=== PATIENT | male | born 1950 | race Hispanic/Latino ===

== ENCOUNTER → 2017-12-23 | Outpatient (CLI) | payer OTHER | END | disposition home or self-care (01) | LOC: SHCH 13:29 | PROVIDERS: ATTEND Internal Medicine Cardiovascular Disease | DX: I10 Essential (primary) hypertension (principal); R09.89 Other specified symptoms and signs involving the circulatory and respiratory systems | CPT/HCPCS: 93306 ==

== ENCOUNTER → 2017-12-23 | Outpatient (CLI) | payer OTHER | END | disposition home or self-care (01) | LOC: SHCH 10:00 | PROVIDERS: ATTEND Internal Medicine Cardiovascular Disease | DX: I10 Essential (primary) hypertension (principal); R09.89 Other specified symptoms and signs involving the circulatory and respiratory systems | CPT/HCPCS: 93880 ==

== ENCOUNTER → 2018-06-15 | Outpatient (CLI) | payer OTHER ==
[~2018-06-15] VITALS: Ht 175.3 cm; Wt 117.9 kg
[~2018-06-15] MED LIST: REGADENOSON 0.4 MG/5 ML PF SYG IVP SCH
== END | disposition home or self-care (01) ==
LOC: SHCH 09:05
PROVIDERS: ATTEND Internal Medicine Cardiovascular Disease
DX: I25.119 Atherosclerotic heart disease of native coronary artery with unspecified angina pectoris (principal); I10 Essential (primary) hypertension
CPT/HCPCS: 78452; 93017; 96374; A9500 ×2; J2785

== ENCOUNTER → 2020-10-01 | Outpatient (CLI) | payer OTHER | END | disposition home or self-care (01) | LOC: SHCH 09:15 | PROVIDERS: ATTEND Internal Medicine Cardiovascular Disease | DX: I50.22 Chronic systolic (congestive) heart failure (principal) | CPT/HCPCS: 93306; 93356 ==

== ENCOUNTER 2025-05-19 06:15 | Inpatient (IN) | payer OTHER ==
[2025-05-18 14:46] LABS: IMMATURE GRANULOCYTE ABSOLUTE 0.04 K/uL (0-1); NUCLEATED RED BLOOD CELLS 0.0 % (0.0-0.19); PLATELET COUNT (AUTO) 449 K/uL (130-400); RED BLOOD CELL COUNT(AUTO) 3.69 MIL/uL (4.50-6.20); RED CELL DISTRIBUTION WIDTH 13.6 % (11.0-15.5); WHITE BLOOD COUNT (AUTO) 9.5 K/uL (4.8-10.8)
[2025-05-18 14:49] VITALS: BP 152/85; PULSE 85; RESP 16; TEMP 97.3
[2025-05-18 14:49] LABS: ADD UA MICROSCOPIC NO; APPEARANCE,URINE CLEAR (CLEAR); GLUCOSE, URINE (UA) NEGATIVE (NEGATIVE); LEUKOCYTE ESTERASE ,URINE NEGATIVE Leu/uL (NEGATIVE); NITRATE,URINE NEGATIVE (NEGATIVE); OCCULT BLOOD,URINE NEGATIVE (NEGATIVE)
[2025-05-18 14:52] LABS: CREATININE 0.7 mg/dL (0.5-1.3); GLOMERULAR FILTR. RATE CALC 96.0 mL/min (>90); GLUCOSE,RANDOM 115.0 mg/dL (70-105); SODIUM SERUM 142.0 mmol/L (136-145); UREA NITROGEN, BLOOD 19.0 mg/dL (7-18)
[2025-05-18 14:55] LABS: INR 1.07 (0.85-1.15)
--- NOTE | 2025-05-18 15:30 | NUR ---
RE: IS INITIAL IS INITIAL TEACHING DONE BY RT BEKAH DURING PREOP.
[~2025-05-19] VITALS: Ht 175.3 cm; Wt 98.9 kg
[2025-05-19] VITALS (31 sets, daily range): BP systolic 105–145; BP diastolic 49–80; PULSE 69–88; RESP 17–20; TEMP 97.5–97.8; O2SAT 92–96
[~2025-05-19 06:15] MED LIST changes: +AMLO-257 PO; +APRE30TA5 PO; +ASPI-1443 PO; +ATOR40TA69 PO; +CLOP-31 PO; +DULO60CA64 PO; +HYDR12.54 PO; +LOSA25TA41 PO; +METF-446 PO; +METO-391 PO; +OMEP40CA21 PO; +POTA-202 PO; -REGADENOSON 0.4 MG/5 ML PF SYG IVP SCH; +TORS20TA4 PO
[2025-05-19] MEDS: 0.9%NACL 1000ML 1,000 ML IV ONE (06:56)
[2025-05-19] MEDS ORDERED: VANCOMYCIN 500MG+NS 100ML 100 ML IV ONE (07:44)
[2025-05-19] MEDS ORDERED: MIDAZOLAM HCL 1 MG/ML 2ML VIAL ONE (09:19)
[2025-05-19] MEDS ORDERED: SUCCINYLCHOLINE CHLORIDE 20 MG/ML 10 ML VIAL ONE (09:19)
[2025-05-19] MEDS ORDERED: TRANEXAMIC ACID 1000MG/10ML ONE (10:28)
--- NOTE | 2025-05-19 12:21 | OP ---
Operative Note: DATE OF PROCEDURE: 05/19/25 SURGEON: ALISTAIR PEOPLES MD PRIMARY CARE SALES REPRESENTATIVE: [Galina Jalloh CFA] ANESTHESIA: [General anesthesia plus regional block] ANESTHESIOLOGIST/INCIDENT RESPONSE ANALYST: [] PREOPERATIVE DIAGNOSIS: [Ten Nava CRNA] POSTOPERATIVE DIAGNOSIS: [Right knee osteoarthritis] IMPLANTS: [Biomet vanguard. Femur 70 right PS. Tibia 83 fixed cruciate. Tibial liner size 12 x 79/83 PS. Patella size 37 x 10 asymmetric.] PROCEDURE: [Right total knee arthroplasty] ESTIMATED BLOOD LOSS: [150 mL] INDICATIONS: [The patient is a 74-year-old male with a history of severe arthrosis of the right knee that has a longer responded to conservative treatment the patient being very incapacitated for activities of the daily living and trocar in the use of a wheelchair. The patient is brought to operating room for right total knee arthroplasty, procedure that he understood, risks, benefits and possible complications and agreed to sign the consent form.] DESCRIPTION OF PROCEDURE: [After adequate general anesthesia was achieved and regional block obtained the right lower extremity was prepped and draped in the usual manner previous placement of the tourniquet in the proximal thigh. The extremity was then elevated and exsanguinated with an Esmarch bandage and the tourniquet inflated to 300 mmHg the Esmarch band been then removed. With the knee in flexion a longitudinal incision was then made in the anterior aspect through the skin followed by dissection of the subcutaneous tissue. A bone infusion needle was then inserted just medial to the tibial tuberosity and through this needle we injected into the bone a solution of normal saline 50 mL mixed with 500 mg of vancomycin. The needle was removed. A paramedian approach was then made with the Bovie cautery cutting through the quadriceps tendon, medial patellar retinaculum and patellar tendon retinaculum. The retropatellar tendon fat was then excised and the soft tissue elements of the tibia were elevated subperiosteally and retractors were applied medially and laterally . The anterior and posterior cruciate ligaments were resected. With the use of a drill a starting hole was made in the distal femur entering the intramedullary canal and then after removal of the drill an intramedullary guide was inserted with a 5 degree valgus block that touched the distal femur and to this the distal femoral cutting guide was then applied anteriorly and was secured to the distal femur with the use of pins. The intramedullary guide was then removed and with the use of the oscillating saw we proceeded to resect the distal femur removing the fragments and the guide. The femoral sizer was then applied distally and drill holes were made removing the sizer and the 4-in-1 cutting block was then inserted and the anterior, posterior and chamfer cuts were made removing the fragments and the block. The PS cutting guide was then inserted and the intercondylar cut was made removing the fragment and the guide. The posterior cruciate ligament retractor was then inserted posterior to the tibia and this was brought forward proceeding then to apply the external tibial alignment guide and secured the proximal cutting guide to the tibia with the use of pins. With the use of the oscillating saw the proximal cut to the tibia tibia was made. The bone fragment was removed and the trial tibia plate was chosen. At this point the menisci were removed sharply and with the use of the curved osteotome the posterior osteophytes of the femur were removed. The trial components were then inserted at the femur and tibia with a trial tibial liner bringing the knee into extension noticing that the patient had a very stable knee in flexion, extension and with valgus and varus stress. The knee was maintained in extension and the patella was then addressed proceeding to measure its thickness and then with the use of the oscillating saw we removed eight mm from the articular surface and restored the height with application of a trial component after 3 peg holes were made. The patellofemoral ligament was removed and then the patellofemoral tracking was checked noticing to be lateralized and for this reason a lateral retinacular release was made returning the tracking back to normal. At this moment all the components were removed, the tibia after the metaphyseal defect was created and while cement was being mixed on the back table we proceeded to irrigate the joint with antibiotic solution and then cover the entry to the femoral canal with a bone plug. Once the cement was ready we proceeded to apply it first to the tibia surface inserting the final component and then to the femoral surface and inserted the final component removing the excess cement and then applying a trial liner bringing the knee into extension for compression. Then we proceeded to irrigate the patella surface and dried it applying then bone cement and the final patellar component was inserted and was secured with application of a clamp. The joint was irrigated with a warm diluted Betadine solution while the cement dried followed by irrigation with antibiotic solution. The trial liner was removed as well as the patellar clamp and we proceeded then to irrigate the posterior aspect of the joint to remove all the remaining debris and the final tibial liner was inserted and locked against the tibia. The range of motion was checked and noticed to be adequate with full extension and flexion, no laxity in valgus or varus stress and with adequate patellofemoral tracking. The patient had no anterior or posterior drawer. The tourniquet was then deflated and this was followed by hemostasis and the wound was then closed with approximation of the quadriceps tendon, patellar retinaculum and patellar tendon retinaculum with #1 Vicryl close stitches alternating with #1 Ethibond stitches, and closure of the subcutaneous tissue with 2-0 Monocryl inverted stitches and the skin was closed with 3-0 Monocryl subcuticularly. The wound was covered with a suction dressing followed by application of an Keyon bandage for compression and the drapes were t hen removed transferring the patient to the hospital bed and taken to recovery room for follow-up by anesthesia. There were no complications during the procedure.] ALISTAIR PEOPLES MD May 19, 2025 12:21
[2025-05-19] MEDS ORDERED: PoTASSium chloRIDE 20MEQ ER 20 MEQ ERTAB PO PRN (12:30)
[2025-05-19] MEDS ORDERED: FERROUS FUMARATE 324 MG TABLET PO PRN (12:30)
[2025-05-19] MEDS ORDERED: PoTASSium chl 10% ELIXIR 20MEQ 20 MEQ/15 ML UDCUP PO PRN (12:30)
[2025-05-19] MEDS: 0.9%NACL 1000ML 1,000 ML IV SCH (12:30)
[2025-05-19] MEDS ORDERED: CALCIUM CARB 500MG PO PRN (12:30)
[2025-05-19] MEDS ORDERED: GLYCOPYRROLATE 0.2 MG/ML 5 ML VIAL ONE (12:36)
[2025-05-19] MEDS ORDERED: NEOSTIGMINE METHYLSULFATE 1MG/ML IV ONE (12:36)
--- NOTE | 2025-05-19 16:00 | NUR ---
ORTHO COORDINATOR: ATTEMPTED TEACHING, PHYSICAL THERAPY AT BEDSIDE.
[2025-05-19] MEDS: ASPIRIN 81 MG EC TAB PO SCH (20:05)
[2025-05-20] VITALS (7 sets, daily range): BP systolic 103–158; BP diastolic 56–94; PULSE 82–107; RESP 18–20; TEMP 97.5–98.6; O2SAT 95–98
[2025-05-20 04:27] LABS: NUCLEATED RED BLOOD CELLS 0.0 % (0.0-0.19); PLATELET COUNT (AUTO) 382.0 K/uL (130-400); RED BLOOD CELL COUNT(AUTO) 3.06 MIL/uL (4.50-6.20); RED CELL DISTRIBUTION WIDTH 13.5 % (11.0-15.5); WHITE BLOOD COUNT (AUTO) 11.2 K/uL (4.8-10.8)
[2025-05-20 04:53] LABS: CREATININE 0.9 mg/dL (0.5-1.3); GLOMERULAR FILTR. RATE CALC 89.0 mL/min (>90); GLUCOSE,RANDOM 149.0 mg/dL (70-105); SODIUM SERUM 135.0 mmol/L (136-145); UREA NITROGEN, BLOOD 18.0 mg/dL (7-18)
--- NOTE | 2025-05-20 14:07 | PN ---
Postop day 1. Status post right total knee arthroplasty. Vital signs stable, afebrile. The patient feels good this morning. Adequate pain control with Toradol the most. Oxycodone not being very effective at this time. Awake, alert and oriented. In no respiratory distress. Dressing intact. Neurovascular exam normal. Assessment: Status post right total knee arthroplasty. Plan: Continue physical therapy and rehabilitation. Await for [place] approval of discharge plan. Vitals/Labs Vital Signs Date Time Temp Pulse Resp B/P (MAP) Pulse Ox O2 Delivery O2 Flow Rate FiO2 05/20/25 11:46 98.2 107 20 103/62 98 Room Air 21 05/19/25 20:05 0 Laboratory Tests 05/20/25 04:22 Medications Current Medications Cefazolin Sodium 2 gm STK-MED ONCE .ROUTE; Start 05/19/25 at 06:55; Stop 05/19/25 at 06:56; Status DC Sodium Chloride 1,000 ml @ As Directed STK-MED ONCE IV; Start 05/19/25 at 06:56; Stop 05/19/25 at 06:56; Status DC Cefazolin Sodium 1 gm STK-MED ONCE .ROUTE; Start 05/19/25 at 07:44; Stop 05/19/25 at 07:44; Status DC Vancomycin HCl 100 ml @ As Directed STK-MED ONCE IV; Start 05/19/25 at 07:44; Stop 05/19/25 at 07:45; Status DC Dexamethasone Sodium Phosphate 10 mg STK-MED ONCE .ROUTE; Start 05/19/25 at 09:18; Stop 05/19/25 at 09:18; Status DC Ondansetron HCl 4 mg STK-MED ONCE .ROUTE; Start 05/19/25 at 09:18; Stop 05/19/25 at 09:18; Status DC Succinylcholine Chloride 200 mg STK-MED ONCE .ROUTE; Start 05/19/25 at 09:19; Stop 05/19/25 at 09:19; Status DC Fentanyl Citrate 100 mcg STK-MED ONCE .ROUTE; Start 05/19/25 at 09:19; Stop 05/19/25 at 09:19; Status DC Propofol 200 mg STK-MED ONCE IV; Start 05/19/25 at 09:19; Stop 05/19/25 at 09:19; Status DC Midazolam HCl 2 mg STK-MED ONCE .ROUTE; Start 05/19/25 at 09:19; Stop 05/19/25 at 09:20; Status DC Rocuronium [place] 50 mg STK-MED ONCE .ROUTE; Start 05/19/25 at 09:20; Stop 05/19/25 at 09:20; Status DC Tranexamic Acid 1,000 mg STK-MED ONCE .ROUTE; Start 05/19/25 at 10:28; Stop 05/19/25 at 10:28; Status DC Rocuronium [place] 50 mg STK-MED ONCE .ROUTE; Start 05/19/25 at 10:56; Stop 05/19/25 at 10:56; Status DC Cefazolin Sodium 2 gm STK-MED ONCE IVPB Last administered on 05/19/25at 09:50; Start 05/19/25 at 09:50; Stop 05/19/25 at 11:37; Status DC Tranexamic Acid 1,000 mg STK-MED ONCE IV Last administered on 05/19/25at 10:20; Start 05/19/25 at 10:20; Stop 05/19/25 at 11:37; Status DC Cefazolin Sodium 3 gm STK-MED ONCE IRRIG Last administered on 05/19/25at 11:30; Start 05/19/25 at 11:30; Stop 05/19/25 at 11:38; Status DC Vancomycin HCl 500 mg STK-MED ONCE IJ Last administered on 05/19/25at 11:30; Start 05/19/25 at 11:30; Stop 05/19/25 at 11:38; Status DC Sodium Chloride 1,000 ml @ 100 mls/hr Q10H IV Last administered on 05/20/25at 11:22; Start 05/19/25 at 12:30; Stop 05/20/25 at 11:33; Status DC Polyethylene Glycol 17 gm DAILY PO Last administered on 05/20/25at 09:49; Start 05/20/25 at 09:00; Stop 06/19/25 at 08:59 Bisacodyl 10 mg DAILY PRN RC; Start 05/22/25 at 12:30; Stop 06/21/25 at 12:29 Ketorolac Tromethamine 15 mg Q6H PRN IV Last administered on 05/20/25at 13:20; Start 05/19/25 at 12:30; Stop 05/24/25 at 12:29 Tamsulosin HCl 0.4 mg DAILY PO Last administered on 05/20/25at 09:48; Start 05/20/25 at 09:00; Stop 06/19/25 at 08:59 Ferrous Fumarate 324 mg DAILY PRN PO; Start 05/19/25 at 12:30; Stop 06/18/25 at 12:29 Temazepam 15 mg HS PRN PO; Start 05/19/25 at 12:30; Stop 06/18/25 at 12:29 Ondansetron HCl 4 mg Q6H PRN IVP; Start 05/19/25 at 12:30; Stop 06/18/25 at 12:29 Calcium Carbonate 500 mg Q12H PRN PO; Start 05/19/25 at 12:30; Stop 06/18/25 at 12:29 Diphenhydramine HCl 25 mg Q6H PRN IVP; Start 05/19/25 at 12:30; Stop 06/18/25 at 12:29 Insulin Human Regular INSULIN SLIDING SCAL... ACHS SQ; Start 05/19/25 at 16:30; Stop 06/18/25 at 16:29 Cefazolin Sodium 2 gm Q8H IVP Last administered on 05/20/25at 01:04; Start 05/19/25 at 17:30; Stop 05/20/25 at 01:31; Status DC Potassium Chloride 100 ml @ 100 mls/hr AD PRN IV; Start 05/19/25 at 12:30; Stop 06/18/25 at 12:29 Potassium Chloride 20 meq AD PRN PO; Start 05/19/25 at 12:30; Stop 06/18/25 at 12:29 Potassium Chloride 20 meq AD PRN PO; Start 05/19/25 at 12:30; Stop 06/18/25 at 12:29 Oxycodone HCl 5 mg Q4H PRN PO; Start 05/19/25 at 12:30; Stop 05/26/25 at 12:29 Oxycodone HCl 10 mg Q4H PRN PO Last administered on 05/20/25at 09:50; Start 05/19/25 at 12:30; Stop 05/26/25 at 12:29 Tramadol HCl 50 mg Q6H PRN PO Last administered on 05/20/25at 05:56; Start 05/19/25 at 12:30; Stop 05/24/25 at 12:29 Acetaminophen 1,000 mg Q8H PO Last administered on 05/20/25at 13:10; Start 05/19/25 at 12:30; Stop 05/21/25 at 12:29 Clopidogrel Bisulfate 75 mg DAILY PO Last administered on 05/20/25at 09:49; Start 05/20/25 at 09:00; Stop 05/20/25 at 11:10; Status DC Aspirin 81 mg BID PO Last administered on 05/20/25at 09:48; Start 05/19/25 at 21:00; Stop 05/20/25 at 11:11; Status DC Glycopyrrolate 1 mg STK-MED ONCE .ROUTE; Start 05/19/25 at 12:36; Stop 05/19/25 at 12:36; Status DC Neostigmine Methylsulfate 10 mg STK-MED ONCE IV; Start 05/19/25 at 12:36; Stop 05/19/25 at 12:36; Status DC Fentanyl Citrate 100 mcg STK-MED ONCE .ROUTE Last administered on 05/19/25at 13:10; Start 05/19/25 at 13:02; Stop 05/19/25 at 13:02; Status DC Amlodipine Besylate 5 mg HS PO; Start 05/20/25 at 21:00; Stop 06/19/25 at 20:59 Aspirin 81 mg HS PO; Start 05/20/25 at 21:00; Stop 06/19/25 at 20:59 Atorvastatin Calcium 80 mg HS PO; Start 05/20/25 at 21:00; Stop 06/19/25 at 20:59 Clopidogrel Bisulfate 75 mg HS PO; Start 05/20/25 at 21:00; Stop 06/19/25 at 20:59 Losartan Potassium 25 mg HS PO; Start 05/20/25 at 21:00; Stop 06/19/25 at 20:59 Metoprolol Succinate 75 mg DAILY PO Last administered on 05/20/25at 11:19; Start 05/20/25 at 11:14; Stop 06/19/25 at 11:13 Potassium Chloride 20 meq DAILY PO; Start 05/21/25 at 09:00; Stop 06/20/25 at 08:59 Torsemide 20 mg DAILYBKFST PO; Start 05/21/25 at 08:00; Stop 06/20/25 at 07:59 Home Med Apremilast(Otezla) 30MG BID PO; Start 05/20/25 at 21:00; Stop 06/19/25 at 20:59 Miscellaneous Medication 60 mg HS PO; Start 05/20/25 at 21:00; Stop 05/20/25 at 11:16; Status DC Miscellaneous Medication 12.5 mg DAILY PO; Start 05/21/25 at 09:00; Stop 05/20/25 at 11:20; Status DC Miscellaneous Medication 1,000 mg BID PO; Start 05/20/25 at 21:00; Stop 05/20/25 at 11:23; Status DC Miscellaneous Medication 40 mg HS PO; Start 05/20/25 at 21:00; Stop 05/20/25 at 11:23; Status DC Duloxetine HCl 60 mg HS PO; Start 05/20/25 at 21:00; Stop 06/19/25 at 20:59 Hydrochlorothiazide 12.5 mg DAILY PO; Start 05/21/25 at 09:00; Stop 06/20/25 at 08:59 Pantoprazole Sodium 40 mg HS PO; Start 05/20/25 at 21:00; Stop 06/19/25 at 20:59 Metformin HCl 1,000 mg BIDMEALS PO; Start 05/20/25 at 17:00; Stop 06/19/25 at 16:59 ALISTAIR PEOPLES MD May 20, 2025 14:07
[2025-05-20] MEDS ORDERED: DIPHTH,PERTUSS(ACELL),TET VAC 0.5 ML SYG IM ONE (18:30)
--- NOTE | 2025-05-20 19:46 | NUR ---
[facility] CM MET WITH PT THIS EVENING, INITIAL ASSESSMENT DONE. PATIENT IS SEMI-INDEPENDENT PRIOR TO SURGERY, LIVES AT HOME WITH HIS , DAUGHTER LIVES CLOSE BY. PATIENT HAS A WALKER, WHEELCHAIR. SHOWER CHAIR, CANE, CPAP, NEBULIZER MACHINE, OLD GLUCOMETER THAT HIS MD SAID HE DOESN'T NEED TO USE BECAUSE HIS HGAIC IS STABLE, TAKES PO DM MED, BPM. DENIES ANY OTHER EQUIPMENT/SERVICES. PT VERBALIZED HE WOULD LIKE TO GO TO [facility] FOR REHAB, CONSENT [facility]LL[facility]. [facility] ONCE APPROVED. CM TO CONTINUE TO FOLLOW UP. Addendum: 05/20/25 at 1950 by GARY MAY LVN Amended: Links added.
[2025-05-20] MEDS: amLODIPine 5 MG TAB PO SCH (20:44)
[2025-05-20] MEDS: ASPIRIN 81 MG EC TAB PO SCH (20:48)
[2025-05-20] MEDS ORDERED: NON-FORMULARY MEDICATION 1 EACH (Duloxetine HCl 60 MG) PO SCH (21:00)
[2025-05-20] MEDS ORDERED: NON-FORMULARY MEDICATION 1 EACH (Omeprazole 40 MG) PO SCH (21:00)
[2025-05-20] MEDS ORDERED: NON-FORMULARY MEDICATION 1 EACH (Metformin HCl 1,000 MG) PO SCH (21:00)
[2025-05-20] MEDS: APREMILAST 30 MG PO SCH (21:00)
[2025-05-21] VITALS (7 sets, daily range): BP systolic 103–119; BP diastolic 54–67; PULSE 88–95; RESP 16–20; TEMP 96.8–98.6; O2SAT 98–99
[2025-05-21] MEDS: TORSEMIDE 20 MG TAB PO SCH (08:00)
[2025-05-21] MEDS: PoTASSium chloRIDE 20MEQ ER 20 MEQ ERTAB PO SCH (08:19)
[2025-05-21] MEDS ORDERED: NON-FORMULARY MEDICATION 1 EACH (Hydrochlorothiazide 12.5 MG) PO SCH (09:00)
--- NOTE | 2025-05-21 12:20 | PN ---
POD # 2., status post right total knee arthroplasty. Vital signs stable, afebrile. Patient doing well with physical therapy and pain management. Awake, alert and oriented, eating. He is in no respiratory distress and normal ventilatory effort. Dressing in the right lower extremity is clean and dry with no signs of bleeding. Mild edema and lower leg. The neurovascular exam is normal. Assessment: Status post right total knee arthroplasty. Plan: Continue with physical therapy, pain management. Awaiting discharge planning arrangements to be completed. Vitals/Labs Vital Signs Date Time Temp Pulse Resp B/P (MAP) Pulse Ox O2 Delivery O2 Flow Rate FiO2 05/21/25 08:00 97.3 91 16 117/56 99 Room Air 21 05/21/25 08:00 0 Medications Current Medications Cefazolin Sodium 2 gm STK-MED ONCE .ROUTE; Start 05/19/25 at 06:55; Stop 05/19/25 at 06:56; Status DC Sodium Chloride 1,000 ml @ As Directed STK-MED ONCE IV; Start 05/19/25 at 06:56; Stop 05/19/25 at 06:56; Status DC Cefazolin Sodium 1 gm STK-MED ONCE .ROUTE; Start 05/19/25 at 07:44; Stop 05/19/25 at 07:44; Status DC Vancomycin HCl 100 ml @ As Directed STK-MED ONCE IV; Start 05/19/25 at 07:44; Stop 05/19/25 at 07:45; Status DC Dexamethasone Sodium Phosphate 10 mg STK-MED ONCE .ROUTE; Start 05/19/25 at 09:18; Stop 05/19/25 at 09:18; Status DC Ondansetron HCl 4 mg STK-MED ONCE .ROUTE; Start 05/19/25 at 09:18; Stop 05/19/25 at 09:18; Status DC Succinylcholine Chloride 200 mg STK-MED ONCE .ROUTE; Start 05/19/25 at 09:19; Stop 05/19/25 at 09:19; Status DC Fentanyl Citrate 100 mcg STK-MED ONCE .ROUTE; Start 05/19/25 at 09:19; Stop 05/19/25 at 09:19; Status DC Propofol 200 mg STK-MED ONCE IV; Start 05/19/25 at 09:19; Stop 05/19/25 at 09:19; Status DC Midazolam HCl 2 mg STK-MED ONCE .ROUTE; Start 05/19/25 at 09:19; Stop 05/19/25 at 09:20; Status DC Rocuronium [place] 50 mg STK-MED ONCE .ROUTE; Start 05/19/25 at 09:20; Stop 05/19/25 at 09:20; Status DC Tranexamic Acid 1,000 mg STK-MED ONCE .ROUTE; Start 05/19/25 at 10:28; Stop 05/19/25 at 10:28; Status DC Rocuronium [place] 50 mg STK-MED ONCE .ROUTE; Start 05/19/25 at 10:56; Stop 05/19/25 at 10:56; Status DC Cefazolin Sodium 2 gm STK-MED ONCE IVPB Last administered on 05/19/25at 09:50; Start 05/19/25 at 09:50; Stop 05/19/25 at 11:37; Status DC Tranexamic Acid 1,000 mg STK-MED ONCE IV Last administered on 05/19/25at 10:20; Start 05/19/25 at 10:20; Stop 05/19/25 at 11:37; Status DC Cefazolin Sodium 3 gm STK-MED ONCE IRRIG Last administered on 05/19/25at 11:30; Start 05/19/25 at 11:30; Stop 05/19/25 at 11:38; Status DC Vancomycin HCl 500 mg STK-MED ONCE IJ Last administered on 05/19/25at 11:30; Start 05/19/25 at 11:30; Stop 05/19/25 at 11:38; Status DC Sodium Chloride 1,000 ml @ 100 mls/hr Q10H IV Last administered on 05/20/25at 11:22; Start 05/19/25 at 12:30; Stop 05/20/25 at 11:33; Status DC Polyethylene Glycol 17 gm DAILY PO Last administered on 05/21/25at 08:19; Start 05/20/25 at 09:00; Stop 06/19/25 at 08:59 Bisacodyl 10 mg DAILY PRN RC; Start 05/22/25 at 12:30; Stop 06/21/25 at 12:29 Ketorolac Tromethamine 15 mg Q6H PRN IV Last administered on 05/21/25at 09:40; Start 05/19/25 at 12:30; Stop 05/24/25 at 12:29 Tamsulosin HCl 0.4 mg DAILY PO Last administered on 05/21/25at 08:19; Start 05/20/25 at 09:00; Stop 06/19/25 at 08:59 Ferrous Fumarate 324 mg DAILY PRN PO; Start 05/19/25 at 12:30; Stop 06/18/25 at 12:29 Temazepam 15 mg HS PRN PO; Start 05/19/25 at 12:30; Stop 06/18/25 at 12:29 Ondansetron HCl 4 mg Q6H PRN IVP; Start 05/19/25 at 12:30; Stop 06/18/25 at 12:29 Calcium Carbonate 500 mg Q12H PRN PO; Start 05/19/25 at 12:30; Stop 06/18/25 at 12:29 Diphenhydramine HCl 25 mg Q6H PRN IVP; Start 05/19/25 at 12:30; Stop 06/18/25 at 12:29 Insulin Human Regular INSULIN SLIDING SCAL... ACHS SQ; Start 05/19/25 at 16:30; Stop 06/18/25 at 16:29 Cefazolin Sodium 2 gm Q8H IVP Last administered on 05/20/25at 01:04; Start 05/19/25 at 17:30; Stop 05/20/25 at 01:31; Status DC Potassium Chloride 100 ml @ 100 mls/hr AD PRN IV; Start 05/19/25 at 12:30; Stop 06/18/25 at 12:29 Potassium Chloride 20 meq AD PRN PO; Start 05/19/25 at 12:30; Stop 06/18/25 at 12:29 Potassium Chloride 20 meq AD PRN PO; Start 05/19/25 at 12:30; Stop 06/18/25 at 12:29 Oxycodone HCl 5 mg Q4H PRN PO; Start 05/19/25 at 12:30; Stop 05/26/25 at 12:29 Oxycodone HCl 10 mg Q4H PRN PO Last administered on 05/21/25at 08:19; Start 05/19/25 at 12:30; Stop 05/26/25 at 12:29 Tramadol HCl 50 mg Q6H PRN PO Last administered on 05/20/25at 05:56; Start 05/19/25 at 12:30; Stop 05/24/25 at 12:29 Acetaminophen 1,000 mg Q8H PO Last administered on 05/20/25at 13:10; Start 05/19/25 at 12:30; Stop 05/21/25 at 12:29 Clopidogrel Bisulfate 75 mg DAILY PO Last administered on 05/20/25at 09:49; Start 05/20/25 at 09:00; Stop 05/20/25 at 11:10; Status DC Aspirin 81 mg BID PO Last administered on 05/20/25at 09:48; Start 05/19/25 at 21:00; Stop 05/20/25 at 11:11; Status DC Glycopyrrolate 1 mg STK-MED ONCE .ROUTE; Start 05/19/25 at 12:36; Stop 05/19/25 at 12:36; Status DC Neostigmine Methylsulfate 10 mg STK-MED ONCE IV; Start 05/19/25 at 12:36; Stop 05/19/25 at 12:36; Status DC Fentanyl Citrate 100 mcg STK-MED ONCE .ROUTE Last administered on 05/19/25at 13:10; Start 05/19/25 at 13:02; Stop 05/19/25 at 13:02; Status DC Amlodipine Besylate 5 mg HS PO; Start 05/20/25 at 21:00; Stop 06/19/25 at 20:59 Aspirin 81 mg HS PO Last administered on 05/20/25at 20:48; Start 05/20/25 at 21:00; Stop 06/19/25 at 20:59 Atorvastatin Calcium 80 mg HS PO Last administered on 05/20/25at 20:52; Start 05/20/25 at 21:00; Stop 06/19/25 at 20:59 Clopidogrel Bisulfate 75 mg HS PO Last administered on 05/20/25at 20:47; Start at 21:00; Stop 06/19/25 at 20:59 Losartan Potassium 25 mg HS PO; Start 05/20/25 at 21:00; Stop 06/19/25 at 20:59 Metoprolol Succinate 75 mg DAILY PO Last administered on 05/20/25at 11:19; Start 05/20/25 at 11:14; Stop 05/20/25 at 19:04; Status DC Potassium Chloride 20 meq DAILY PO Last administered on 05/21/25at 08:19; Start 05/21/25 at 09:00; Stop 06/20/25 at 08:59 Torsemide 20 mg DAILYBKFST PO; Start 05/21/25 at 08:00; Stop 06/20/25 at 07:59 Home Med Apremilast(Otezla) 30MG BID PO; Start 05/20/25 at 21:00; Stop 06/19/25 at 20:59 Miscellaneous Medication 60 mg HS PO; Start 05/20/25 at 21:00; Stop 05/20/25 at 11:16; Status DC Miscellaneous Medication 12.5 mg DAILY PO; Start 05/21/25 at 09:00; Stop 05/20/25 at 11:20; Status DC Miscellaneous Medication 1,000 mg BID PO; Start 05/20/25 at 21:00; Stop 05/20/25 at 11:23; Status DC Miscellaneous Medication 40 mg HS PO; Start 05/20/25 at 21:00; Stop 05/20/25 at 11:23; Status DC Duloxetine HCl 60 mg HS PO Last administered on 05/20/25at 20:48; Start 05/20/25 at 21:00; Stop 06/19/25 at 20:59 Hydrochlorothiazide 12.5 mg DAILY PO; Start 05/21/25 at 09:00; Stop 06/20/25 at 08:59 Pantoprazole Sodium 40 mg HS PO Last administered on 05/20/25at 20:48; Start 05/20/25 at 21:00; Stop 06/19/25 at 20:59 Metformin HCl 1,000 mg BIDMEALS PO Last administered on 05/21/25at 08:18; Start 05/20/25 at 17:00; Stop 06/19/25 at 16:59 Metoprolol Succinate 50 mg DAILY PO Last administered on 05/21/25at 08:18; Start 05/21/25 at 09:00; Stop 06/19/25 at 11:13 Metoprolol Succinate 25 mg DAILY PO Last administered on 05/21/25at 08:18; Start 05/21/25 at 09:00; Stop 06/20/25 at 08:59 ALISTAIR PEOPLES MD 24, 2025 12:20
[2025-05-22] VITALS (9 sets, daily range): BP systolic 98–124; BP diastolic 53–65; PULSE 84–104; RESP 16–20; TEMP 97.6–98.6; O2SAT 92–96
--- NOTE | 2025-05-22 18:40 | PN ---
Postop day 3., status post right total knee arthroplasty. vital signs stable, afebrile Patient did better with the physical therapy today. He has been able to use the restroom and urinate with no problem also. Eating well. He is awake, alert and oriented. In no respiratory distress, Dressing is intact. Neurovascular exam distally is normal. Assessment: Status post right total knee arthroplasty. Plan: Arrangements still being worked up for the patient to go to [facility]. Ready to be discharged with a approved. Continue physical therapy and rehabilitation and pain control Vitals/Labs Vital Signs Date Time Temp Pulse Resp B/P (MAP) Pulse Ox O2 Delivery O2 Flow Rate FiO2 05/22/25 16:00 98.6 98 18 108/55 97 Room Air 05/22/25 07:30 0 21 Medications Current Medications Cefazolin Sodium 2 gm STK-MED ONCE .ROUTE; Start 05/19/25 at 06:55; Stop 05/19/25 at 06:56; Status DC Sodium Chloride 1,000 ml @ As Directed STK-MED ONCE IV; Start 05/19/25 at 06:56; Stop 05/19/25 at 06:56; Status DC Cefazolin Sodium 1 gm STK-MED ONCE .ROUTE; Start 05/19/25 at 07:44; Stop 05/19/25 at 07:44; Status DC Vancomycin HCl 100 ml @ As Directed STK-MED ONCE IV; Start 05/19/25 at 07:44; Stop 05/19/25 at 07:45; Status DC Dexamethasone Sodium Phosphate 10 mg STK-MED ONCE .ROUTE; Start 05/19/25 at 09:18; Stop 05/19/25 at 09:18; Status DC Ondansetron HCl 4 mg STK-MED ONCE .ROUTE; Start 05/19/25 at 09:18; Stop 05/19/25 at 09:18; Status DC Succinylcholine Chloride 200 mg STK-MED ONCE .ROUTE; Start 05/19/25 at 09:19; Stop 05/19/25 at 09:19; Status DC Fentanyl Citrate 100 mcg STK-MED ONCE .ROUTE; Start 05/19/25 at 09:19; Stop 05/19/25 at 09:19; Status DC Propofol 200 mg STK-MED ONCE IV; Start 05/19/25 at 09:19; Stop 05/19/25 at 09:19; Status DC Midazolam HCl 2 mg STK-MED ONCE .ROUTE; Start 05/19/25 at 09:19; Stop 05/19/25 at 09:20; Status DC Rocuronium [place] 50 mg STK-MED ONCE .ROUTE; Start 05/19/25 at 09:20; Stop 05/19/25 at 09:20; Status DC Tranexamic Acid 1,000 mg STK-MED ONCE .ROUTE; Start 05/19/25 at 10:28; Stop 05/19/25 at 10:28; Status DC Rocuronium [place] 50 mg STK-MED ONCE .ROUTE; Start 05/19/25 at 10:56; Stop 05/19/25 at 10:56; Status DC Cefazolin Sodium 2 gm STK-MED ONCE IVPB Last administered on 05/19/25at 09:50; Start 05/19/25 at 09:50; Stop 05/19/25 at 11:37; Status DC Tranexamic Acid 1,000 mg STK-MED ONCE IV Last administered on 05/19/25at 10:20; Start 05/19/25 at 10:20; Stop 05/19/25 at 11:37; Status DC Cefazolin Sodium 3 gm STK-MED ONCE IRRIG Last administered on 05/19/25at 11:30; Start 05/19/25 at 11:30; Stop 05/19/25 at 11:38; Status DC Vancomycin HCl 500 mg STK-MED ONCE IJ Last administered on 05/19/25at 11:30; Start 05/19/25 at 11:30; Stop 05/19/25 at 11:38; Status DC Sodium Chloride 1,000 ml @ 100 mls/hr Q10H IV Last administered on 05/20/25at 11:22; Start 05/19/25 at 12:30; Stop 05/20/25 at 11:33; Status DC Polyethylene Glycol 17 gm DAILY PO Last administered on 05/22/25at 09:14; Start 05/20/25 at 09:00; Stop 06/19/25 at 08:59 Bisacodyl 10 mg DAILY PRN RC; Start 05/22/25 at 12:30; Stop 06/21/25 at 12:29 Ketorolac Tromethamine 15 mg Q6H PRN IV Last administered on 05/22/25at 00:51; Start 05/19/25 at 12:30; Stop 05/24/25 at 12:29 Tamsulosin HCl 0.4 mg DAILY PO Last administered on 05/22/25at 09:14; Start 05/20/25 at 09:00; Stop 06/19/25 at 08:59 Ferrous Fumarate 324 mg DAILY PRN PO; Start 05/19/25 at 12:30; Stop 06/18/25 at 12:29 Temazepam 15 mg HS PRN PO; Start 05/19/25 at 12:30; Stop 06/18/25 at 12:29 Ondansetron HCl 4 mg Q6H PRN IVP; Start 05/19/25 at 12:30; Stop 06/18/25 at 12:29 Calcium Carbonate 500 mg Q12H PRN PO; Start 05/19/25 at 12:30; Stop 06/18/25 at 12:29 Diphenhydramine HCl 25 mg Q6H PRN IVP; Start 05/19/25 at 12:30; Stop 06/18/25 at 12:29 Insulin Human Regular INSULIN SLIDING SCAL... ACHS SQ; Start 05/19/25 at 16:30; Stop 06/18/25 at 16:29 Cefazolin Sodium 2 gm Q8H IVP Last administered on 05/20/25at 01:04; Start 05/19/25 at 17:30; Stop 05/20/25 at 01:31; Status DC Potassium Chloride 100 ml @ 100 mls/hr AD PRN IV; Start 05/19/25 at 12:30; Stop 06/18/25 at 12:29 Potassium Chloride 20 meq AD PRN PO; Start 05/19/25 at 12:30; Stop 06/18/25 at 12:29 Potassium Chloride 20 meq AD PRN PO; Start 05/19/25 at 12:30; Stop 06/18/25 at 12:29 Oxycodone HCl 5 mg Q4H PRN PO; Start 05/19/25 at 12:30; Stop 05/26/25 at 12:29 Oxycodone HCl 10 mg Q4H PRN PO Last administered on 05/22/25at 16:01; Start 05/19/25 at 12:30; Stop 05/26/25 at 12:29 Tramadol HCl 50 mg Q6H PRN PO Last administered on 05/21/25at 21:29; Start 05/19/25 at 12:30; Stop 05/24/25 at 12:29 Acetaminophen 1,000 mg Q8H PO Last administered on 05/20/25at 13:10; Start 05/19 at 12:30; Stop 05/21/25 at 12:29; Status DC Clopidogrel Bisulfate 75 mg DAILY PO Last administered on 05/20/25at 09:49; Sta rt 05/20/25 at 09:00; Stop 05/20/25 at 11:10; Status DC Aspirin 81 mg BID PO Last administered on 05/20/25at 09:48; Start 05/19/25 at 21:00; Stop 05/20/25 at 11:11; Status DC Glycopyrrolate 1 mg STK-MED ONCE .ROUTE; Start 05/19/25 at 12:36; Stop 05/19/25 at 12:36; Status DC Neostigmine Methylsulfate 10 mg STK-MED ONCE IV; Start 05/19/25 at 12:36; Stop 05/19/25 at 12:36; Status DC Fentanyl Citrate 100 mcg STK-MED ONCE .ROUTE Last administered on 05/19/25at 13:10; Start 05/19/25 at 13:02; Stop 05/19/25 at 13:02; Status DC Amlodipine Besylate 5 mg HS PO Last administered on 05/21/25at 21:29; Start 05/20/25 at 21:00; Stop 06/19/25 at 20:59 Aspirin 81 mg HS PO Last administered on 05/21/25at 21:29; Start 05/20/25 at 21:00; Stop 06/19/25 at 20:59 Atorvastatin Calcium 80 mg HS PO Last administered on 05/21/25at 21:29; Start 05/20/25 at 21:00; Stop 06/19/25 at 20:59 Clopidogrel Bisulfate 75 mg HS PO Last administered on 05/21/25at 21:29; Start 05/20/25 at 21:00; Stop 06/19/25 at 20:59 Losartan Potassium 25 mg HS PO Last administered on 05/21/25at 21:29; Start 05/20/25 at 21:00; Stop 06/19/25 at 20:59 Metoprolol Succinate 75 mg DAILY PO Last administered on 05/20/25at 11:19; Start 05/20/25 at 11:14; Stop 05/20/25 at 19:04; Status DC Potassium Chloride 20 meq DAILY PO Last administered on 05/22/25at 09:14; Start 05/21/25 at 09:00; Stop 06/20/25 at 08:59 Torsemide 20 mg DAILYBKFST PO Last administered on 05/22/25at 09:14; Start 05/21/25 at 08:00; Stop 06/20/25 at 07:59 Home Med Apremilast(Otezla) 30MG BID PO; Start 05/20/25 at 21:00; Stop 06/19/25 at 20:59 Miscellaneous Medication 60 mg HS PO; Start 05/20/25 at 21:00; Stop 05/20/25 at 11:16; Status DC Miscellaneous Medication 12.5 mg DAILY PO; Start 05/21/25 at 09:00; Stop 05/20/25 at 11:20; Status DC Miscellaneous Medication 1,000 mg BID PO; Start 05/20/25 at 21:00; Stop 05/20/25 at 11:23; Status DC Miscellaneous Medication 40 mg HS PO; Start 05/20/25 at 21:00; Stop 05/20/25 at 11:23; Status DC Duloxetine HCl 60 mg HS PO Last administered on 05/21/25at 21:29; Start 05/20/25 at 21:00; Stop 06/19/25 at 20:59 Hydrochlorothiazide 12.5 mg DAILY PO; Start 05/21/25 at 09:00; Stop 06/20/25 at 08:59 Pantoprazole Sodium 40 mg HS PO Last administered on 05/21/25at 21:29; Start 05/20/25 at 21:00; Stop 06/19/25 at 20:59 Metformin HCl 1,000 mg BIDMEALS PO Last administered on 05/22/25at 17:26; Start 05/20/25 at 17:00; Stop 06/19/25 at 16:59 Metoprolol Succinate 50 mg DAILY PO Last administered on 05/21/25at 08:18; Start 05/21/25 at 09:00; Stop 06/19/25 at 11:13 Metoprolol Succinate 25 mg DAILY PO Last administered on 05/21/25at 08:18; Start 05/21/25 at 09:00; Stop 06/20/25 at 08:59 ALISTAIR PEOPLES MD May 22, 2025 18:40
[2025-05-23 03:19] VITALS: BP 101/52; PULSE 104; RESP 16; TEMP 98
[2025-05-23 08:00] VITALS: BP 126/64; PULSE 101; RESP 18; TEMP 98.2; O2SAT 100
--- NOTE | 2025-05-23 09:46 | NUR ---
[place] Care Coordination Call/Service Connection Patient [facility] upon [facility]. Per Sharon graham/ the [facility] was approved this morning. Updated CM.
[2025-05-23 12:00] VITALS: BP 130/67; PULSE 96; RESP 18; TEMP 98.4
[2025-05-23 16:00] VITALS: BP 119/66; PULSE 95; RESP 18; TEMP 97.9
[2025-05-23] MEDS ORDERED: OXYC-38 PO (16:47)
--- NOTE | 2025-05-23 16:56 | DS ---
DISCHARGE SUMMARY [Date of admission: 05/19/2025 Date of discharge: 05/23/2025 Final diagnosis: Right Knee osteoarthritis Surgical procedures: Right total Knee arthroplasty on 05/19/2025 Summary of History and Physical: The patient is a 75 year-old male with history of severe arthrosis to the right knee that has been present for several years and has been treated conservatively with no longer adequate response to treatment. The patient is being admitted for total knee arthroplasty. Previous medical history: Coronary artery disease, Chronic obstructive pulmonary disease, sleep apnea, hypertension, heart disease, rheumatoid arthritis, chickenpox, gastritis, diabetes mellitus. Previous surgical history: Left total knee arthroplasty, open her surgery. Family history: Heart disease Social history: Negative for use of tobacco or alcohol. Allergies: NKDA. Review of system: Negative on admission Hospital course: The patient was admitted and taken to the operating room for a total knee arthroplasty, procedure that went uneventful. Postoperatively the patient remained hemodynamically stable and afebrile. The patient received antibiotic and anticoagulation prophylaxis as per protocol. The patient was evaluated by physical therapy and started rehabilitation treatment with ambulation with the use of walker, weightbearing as tolerated, range of motion exercises and bed transfers. The patient was also evaluated by case management and arrangements were made for discharge. The patient tolerated diet well. On postop day #4 all the arrangements were completed, and the patient was dismissed. Condition on discharge: Good Disposition: The patient will be dismissed to a assisted facility . Follow-up will be done at the office in 3 weeks. The patient is to continue with physical therapy and rehabilitation at facility and be ambulatory with the use of a walker, weightbearing as tolerated. Continue taking pain medication as instructed as well as anticoagulation prophylaxis. Continue with home medications also as instructed and continue with pre admission diet.] ALISTAIR PEOPLES MD May 23, 2025 16:56
--- NOTE | 2025-05-23 17:45 | NUR ---
DISCHARGE 1700 DISCHARGE ORDERS OBTAINED FOR PATIENT TO BE DISCHARGED AND TRANSFERRED TO [facility]. DISCHARGE INSTRUCTIONS AND DOCUMENTATION GIVEN TO PATIENT. IV DISCONTINUED, CATHETER INTACT, NO S/S OF INFECTION NOTED TO AREA. BANDS REMOVED PRIOR TO DISCHARGE. PENDING TRANSPORTATION FROM [facility]. REPORT CALLED INTO [facility], SPOKE WITH JORDYN NDIAYE. PROVIDED WITH PATIENT'S CONDITION, HX AND MD'S ORDERS. VOICED UNDERSTANDING.
--- NOTE | 2025-05-23 18:21 | NUR ---
DISCHARGE PATIENT LEFT VIA WHEELCHAIR ACCOMPANIED BY . NO S/S OF DISTRESS NOTED.
== END 2025-05-23 18:55 | DRG 470 ==
LOC: SUH 06:15 → DAH 06:15 → OBSVTOIN 06:16 → SUH 06:16 → DAHIP 06:16 → 4CH 14:00
PROVIDERS: ADMIT Orthopaedic Surgery; ATTEND Orthopaedic Surgery
PROC: 0SRC0J9 Replacement of Right Knee Joint with Synthetic Substitute, Cemented, Open Approach (ICD-10-PCS; principal; 2025-05-19 09:25)
DX: M17.11 Unilateral primary osteoarthritis, right knee (principal); E11.9 Type 2 diabetes mellitus without complications; I10 Essential (primary) hypertension; I25.10 Atherosclerotic heart disease of native coronary artery without angina pectoris; J44.9 Chronic obstructive pulmonary disease, unspecified
CPT/HCPCS: 36415; 80048; 81003; 82948; 85025; 85027; 85610; 87086; 87641; 90715; C1776; G0378; J0330; J0690; J1100; J1885; J2250; J2405; J2704; J2710; J3010; J3373; J3490; J7030; J7120; A4213; A4215; A4216; A4221; A4222; A4223; A4649; A4663; A4930; A5120; A6260; A9272; C1713